=== PATIENT | female | born 1970 | race Caucasian/White ===

== ENCOUNTER 2020-05-10 05:08 | Day surgery (SDC) | payer BC ==
[2020-05-09 14:45] VITALS: BMI 40.2
[2020-05-10 13:05] VITALS: TEMP 97.7
[2020-05-10 13:19] VITALS: PULSE 64
[2020-05-10 14:04] VITALS: BP 116/80
== END 2020-05-10 14:00 | disposition home or self-care (01) ==
LOC: JASU-ENDO 05:08
PROVIDERS: ATTEND Internal Medicine Gastroenterology
PROC: 0DJ08ZZ Inspection of Upper Intestinal Tract, Via Natural or Artificial Opening Endoscopic (ICD-10-PCS; principal; 2020-05-10 12:30)
DX: Z01.818 Encounter for other preprocedural examination (principal); K31.7 Polyp of stomach and duodenum; R14.0 Abdominal distension (gaseous); R12 Heartburn